=== PATIENT | female | born 1990 | race Hispanic/Latino ===

== ENCOUNTER 2020-01-03 08:15 | Observation (INO) | payer OTHER ==
[2020-01-03] MEDS ORDERED: diphenhydrAMINE 50 MG/ML VIAL IVP PRN (09:12)
[2020-01-03] MEDS ORDERED: Hyoscyamine Sulfate SL 0.125 mg Tablet SL PRN (09:12)
[2020-01-03] MEDS ORDERED: HYDROcodone/Acetaminophen 10/325 mg Tablet PO PRN (09:12)
[2020-01-03] MEDS ORDERED: Morphine 4 MG/ML VIAL SLOW IVP PRN (09:12)
[2020-01-03] MEDS ORDERED: Phenazopyridine HCl 97.5 MG TABLET PO PRN (09:12)
[2020-01-03] MEDS ORDERED: Zolpidem Tartrate 5 MG TAB PO PRN (09:12)
[2020-01-03] MEDS ORDERED: Ondansetron PF 4 MG/2 ML Vial IVP PRN (09:12)
[2020-01-03] MEDS ORDERED: D5 1/2 NS w/20 mEq KCL 1,000 ML IV SCH (09:15)
--- NOTE | 2020-01-03 09:55 | HP ---
CHIEF COMPLAINT: Left flank pain. HISTORY OF PRESENT ILLNESS: This is a 29-year-old female who developed acute onset severe left-sided flank pain / yesterday afternoon. She was seen at [facility] Emergency Room last night where she was diagnosed via CT scan with a large obstructing distal left ureteral stone. Her pain was not able to be controlled in the emergency room. She was found to have slight elevation in her white blood cell count and so she was admitted to the hospitalist service. I was consulted in the morning and in speaking with her this morning, she continues to have intermittent left-sided flank pain with mild dysuria. She denies hematuria, fevers, or chills. She continues to have mild nausea but no further vomiting. She has not passed a stone overnight. PAST MEDICAL HISTORY: Anxiety. PAST SURGICAL HISTORY: IUD. 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 No substance abuse or smoking. FAMILY HISTORY: No family history of recurrent kidney stones. ALLERGIES: NO KNOWN ALLERGIES. REVIEW OF SYSTEMS: A 10-point review of systems performed, negative except as mentioned in my HPI. PHYSICAL EXAMINATION: VITAL SIGNS: Afebrile, vitals stable overnight, initially tachycardic in the emergency room. GENERAL: No acute distress, conversant. HEAD: Normocephalic and atraumatic. EYES: Extraocular movements intact. Sclerae nonicteric. NECK: Supple. Trachea midline. RESPIRATORY: Breathing unlabored. Symmetric chest expansion. HEART: Regular rate and rhythm. ABDOMEN: Soft, tender over the left lower quadrant, nondistended. No CVA tenderness. EXTREMITIES: Without clubbing, cyanosis, or edema. SKIN: Warm and dry. NEUROLOGIC: Alert and oriented x3. PSYCHIATRIC: Normal mood and affect. LABORATORY DATA: Reviewed. Urinalysis with leukocyte esterase and bacteria. White count has risen from 11 to 13 this morning. Creatinine normal. IMAGING DATA: I personally reviewed her CT scan, which does show 2 punctate calculi, one in each kidney with a large distal left ureteral stone at the UVJ with hydroureter and hydronephrosis. ASSESSMENT AND PLAN: Obstructing left ureteral stone, urinary tract infection, leukocytosis. The patient and I discussed her options at this point and I encouraged her to consider surgical intervention. I did not think that she was quite to a point where I had to insist that this was done immediately. However, I did explain the risk of developing pyelonephritis with possible sepsis. We decided to proceed to the operating room for stent placement with possible basket extraction of the stone if it is visible at the UVJ. I explained the procedure in detail including the expected postoperative course and the risks of bleeding, infection, pain, worsening infection, inability to remove the stone, inability to place the stent, formation of ureteral stricture. She expressed understanding and wishes to proceed. I called down to the operating room to schedule the procedure in [place]. However, the air conditioning is malfunctioning and they are not scheduling cases, so the patient will be transferred to [place] for surgical intervention later today. Last night, I did request a rapid COVID test in preparation for likely surgical intervention; however, this was not granted by the hyperion administrator collection systems administrator and so we will have to proceed without the COVID results. This has been discussed with Dr. Aguilar, who approved the case. TIME SPENT: Greater than 80 minutes spent in the patient's care and coordination. Job ID: [id number]
[2020-01-03] MEDS ORDERED: Ondansetron PF 4 MG/2 ML Vial ONE (10:30)
[2020-01-03] MEDS ORDERED: PROPOFOL 200 MG/20 ML VIAL ONE (10:30)
[2020-01-03] MEDS ORDERED: EPHEDRINE 25 MG/5 ML SYRINGE ONE (10:30)
[2020-01-03] MEDS ORDERED: Lidocaine 1% PF 5 ML VIAL ONE (10:30)
[2020-01-03] MEDS ORDERED: Metoclopramide HCl 10 MG/2 ML VIAL ONE (10:30)
[2020-01-03] MEDS ORDERED: Dexamethasone 20 MG/5 ML VIAL ONE (10:30)
[2020-01-03] MEDS ORDERED: Ketorolac Tromethamine 30 MG/ML VIAL IVP SCH (12:00)
[2020-01-03] MEDS ORDERED: cefTRIAXone\\ROCEPHIN 1 GM in Sodium Chloride 0.9% 100 ML IVPB SCH (13:00)
[2020-01-03 13:51] VITALS: BP 102/62; TEMP 98.2
[2020-01-03] MEDS ORDERED: Iothalamate Meglumine 60% 50 ML VIAL FS ONE (14:14)
[2020-01-03] MEDS ORDERED: Midazolam HCl 2 mg/2 ml Vial ONE (14:27)
[2020-01-03] MEDS ORDERED: Famotidine/PF 20 mg/2ml Vial ONE (14:28)
[2020-01-03] MEDS ORDERED: Fentanyl 100 MCG/2 ML VIAL ONE ×2 (14:28→15:44)
--- NOTE | 2020-01-03 16:08 | OP ---
DATE OF PROCEDURE: 01/03/2020 PREOPERATIVE DIAGNOSIS: Left ureteral stone. POSTOPERATIVE DIAGNOSIS: Left hydronephrosis. PROCEDURES PERFORMED: Cystoscopy with left ureteroscopy, retrograde pyelogram, 4.8 x 24 double-J ureteral stent placement. ANESTHESIA: General. COMPLICATIONS: None. ESTIMATED BLOOD LOSS: None. SPECIMEN: None. FINDINGS: Bifurcated upper ureter and collecting system. DESCRIPTION OF PROCEDURE: After informed consent, the patient was taken to the operating room, transferred to the table on her own power. Anesthesia was established. Time-out was performed, showing the correct patient, site, and procedure. Preoperative antibiotics were administered. She was prepped and draped in the lithotomy position. I began by inserting the semi-rigid ureteroscope through the urethra into the bladder noting no stone seen at the base of the bladder. The left ureteral orifice was significantly edematous. I was able to pass a wire through this and passed this up to the level of the renal pelvis under fluoroscopic guidance. The scope was removed and inserted alongside the wire through the distal ureter, noting no stones. In the mid to proximal ureter, the ureter bifurcates into an upper and lower pole moiety. A retrograde pyelogram was performed at this point, showing significant hydroureter and hydronephrosis. Each proximal ureter was examined independently. No stone fragments were identified. The scope was then withdrawn. The bladder re-examined once again, noting no stones in the base of the bladder. The scope was then completely withdrawn and a 4.8 x 24 double-J ureteral stent was positioned over the wire with a curl in the kidney and curl in the bladder under fluoroscopic guidance. The bladder was then drained. Strings from the stent were taped to the patient's right inner thigh for her to remove within three days. At this point, the case was completed. The patient was awoken from anesthesia, transferred back to her hospital bed, and taken to PACU in stable condition, where she will return to the floor upon recovery. Job ID: [id number]
[2020-01-03 17:35] VITALS: BMI 24.8
--- NOTE | 2020-01-03 20:34 | DIS ---
DATE OF ADMISSION: 01/03/2020 DATE OF DISCHARGE: 01/03/2020 CHIEF COMPLAINT: Left flank pain. DIAGNOSES: Left ureteral stone, hydronephrosis, urinary tract infection. HOSPITAL COURSE: A 29-year-old female who presented to [facility] location January 01 with obstructing distal left ureteral stone. She was found to have a likely urinary tract infection and had slight leukocytosis. Overnight, she continued to have pain with an increase in her white blood cell count, and so the decision was made to proceed to the operating room. She had to be transferred to [place] because surgery was unavailable in [place] due to malfunctioning air conditioning. She was taken to the operating room later in the day and underwent cystoscopy with left ureteroscopy, retrograde pyelogram, and stent placement. She had already passed her stone, however, had significant UVJ or ureteral orifice edema and severe hydroureter and hydronephrosis. A stent was placed with strings for her to remove on her own. She returned to the floor postoperatively and recovered well with minimal discomfort. She was deemed stable for discharge home at that point. ACTIVITY: Light nonstressful activities for 1 week. MEDICATIONS: Sent to [facility] include: 1. Bactrim. 2. Oxybutynin. 3. Tamsulosin. 4. Tramadol. 5. Ibuprofen. Return to work in 1 week. DIET: Regular diet. PLAN: Follow up in office 3 to 4 weeks. Job ID: [id number]
[2020-01-03] MEDS ORDERED: Docusate 100 MG CAP PO SCH (21:00)
[2020-01-04] MEDS ORDERED: Tamsulosin HCl 0.4 MG CAP PO SCH (09:00)
== END 2020-01-03 18:51 | disposition home or self-care (01) ==
LOC: SURG B 08:15
PROVIDERS: ADMIT Urology; ATTEND Urology
PROC: 0T778DZ Dilation of Left Ureter with Intraluminal Device, Via Natural or Artificial Opening Endoscopic (ICD-10-PCS; principal; 2020-01-03)
DX: N13.2 Hydronephrosis with renal and ureteral calculous obstruction (principal); N39.0 Urinary tract infection, site not specified; D72.829 Elevated white blood cell count, unspecified; F41.9 Anxiety disorder, unspecified; Z79.899 Other long term (current) drug therapy
CPT/HCPCS: 76000; J0696; J1100; J1885; J2250; J2405; J2704; J2765; J3010; J3480; J3490; S0028

== ENCOUNTER 2024-06-28 11:51 | Outpatient (CLI) | payer BC | END 2024-06-28 11:52 | disposition home or self-care (01) | LOC: SCSRAD 11:51 | PROVIDERS: ATTEND Family Medicine | DX: R05.1 Acute cough (principal) | CPT/HCPCS: 71046 ==